=== PATIENT | female | born 1970 | race Hispanic/Latino ===

== ENCOUNTER 2020-11-20 19:56 | Emergency (ER) | payer BC ==
[2020-11-20] MEDS ORDERED: Cephalexin 250 MG CAP ONE (20:33)
[2020-11-20] MEDS ORDERED: Sulfameth/Trimethoprim DS 800-160mg TAB ONE (20:33)
[2020-11-20] MEDS ORDERED: Ibuprofen 200 MG TAB ONE (20:33)
== END 2020-11-20 20:38 | disposition home or self-care (01) ==
LOC: CSHERS 19:56
DX: S50.862A Insect bite (nonvenomous) of left forearm, initial encounter (principal); L03.114 Cellulitis of left upper limb; Z87.891 Personal history of nicotine dependence; W57.XXXA Bitten or stung by nonvenomous insect and other nonvenomous arthropods, initial encounter
CPT/HCPCS: 99283

== ENCOUNTER 2021-10-05 09:12 | Emergency (ER) | payer BC, SELFPAY ==
[2021-10-05 10:06] LABS: Bilirubin Neg (Negative); Blood, Urine 25 (Negative); Clarity Clear (Clear); Glucose, Urine (Dipstick) 50 mg/dL (Negative); Ketone, Urine Negative (Negative); Leukocyte 25 (Negative); Nitrite Negative (Negative); Protein, Urine (Dipstick) 15 mg/dl (Neg-Trace); Urobilinogen Normal mg/dL (Less than 2)
[2021-10-05 10:17] LABS: Bacteria/HPF 2+ HPF (None Seen)
[2021-10-05] MEDS ORDERED: Ketorolac Tromethamine 30 MG/ML VIAL ONE (10:40)
== END 2021-10-05 10:43 | disposition home or self-care (01) ==
LOC: CSHERS 09:12
DX: S39.012A Strain of muscle, fascia and tendon of lower back, initial encounter (principal); N30.00 Acute cystitis without hematuria; Z87.891 Personal history of nicotine dependence; X58.XXXA Exposure to other specified factors, initial encounter
CPT/HCPCS: 81003; 81015; 96372; 99283; J1885

== ENCOUNTER 2021-12-27 09:32 | Emergency (ER) | payer BC | END 2021-12-27 10:55 | disposition home or self-care (01) | LOC: CSHERS 09:32 | DX: J20.9 Acute bronchitis, unspecified (principal); Z87.891 Personal history of nicotine dependence | CPT/HCPCS: 71045; 93005 ==

== ENCOUNTER 2022-09-18 08:56 | Emergency (ER) | payer BC ==
[2022-09-18 10:46] LABS: #Monocytes 0.4 10x3/uL (0.0-1.1); #Neutrophils 6.2 10x3/uL (1.5-8.4); %Basophils 0.3 % (0.0-2.0); %Eosinophils 0.5 % (0.0-6.0); %Monocytes 4.6 % (0.0-10.0); %Neutrophils 82.3 % (40.0-75.0); Hemoglobin 15.7 g/dL (12.0-15.5); Mean Corpuscular HGB CONC 34.4 g/dL (32.0-36.0); Mean Corpuscular Hemoglobin 29.6 pg (27.0-33.0); Mean Platelet Volume 12.2 fl (7.4-10.4); Platelet Count 201 10x3/uL (150-450); RBC Distribution Width 12.8 % (11.5-14.5); White Blood Cell (WBC) Count 7.6 10x3/uL (3.5-10.5)
[2022-09-18] MEDS ORDERED: Ondansetron PF 4 MG/2 ML Vial ONE (11:00)
[2022-09-18 11:14] LABS: ALT (SGPT) 159 U/L (8-55); AST (SGOT) 99 U/L (5-34); Albumin 4.4 g/dL (3.5-5.0); Alkaline Phosphatase 106 U/L (40-110); Anion Gap 12 mmol/L (10-20); BUN (Urea Nitrogen) 14 mg/dL (7.0-18.7); Bilirubin, Total 1.9 mg/dL (0.2-1.2); Calc. Creatinine Clearance 0 mL/min (70-130); Calcium 9.2 mg/dL (7.8-10.44); Carbon Dioxide 24 mmol/L (22-29); Chloride 104 mmol/L (98-107); Estimated GFR 89; Globulin 3.7 g/dL (2.4-3.5); Glucose 113 mg/dL (70-105); Lipase 7 U/L (8-78); Potassium 3.9 mmol/L (3.5-5.1); Protein, Total 8.1 g/dL (6.0-8.3); Sodium 136 mmol/L (136-145)
[2022-09-18 11:29] LABS: Bilirubin Neg (Negative); Blood, Urine 10 (Negative); Clarity Clear (Clear); Glucose, Urine (Dipstick) Normal (Negative); Ketone, Urine Negative (Negative); Leukocyte Negative (Negative); Nitrite Negative (Negative); Protein, Urine (Dipstick) 15 mg/dl (Neg-Trace)
[2022-09-18 11:39] LABS: Bacteria/HPF 1+ HPF (None Seen); RBC/HPF 0-3 HPF (0-3); Squamous Epithelial 0-3 HPF (0-3); WBC/HPF 0-3 HPF (0-3)
== END 2022-09-18 12:05 | disposition home or self-care (01) ==
LOC: CSHERS 08:56
DX: B34.9 Viral infection, unspecified (principal); R19.7 Diarrhea, unspecified; R11.2 Nausea with vomiting, unspecified; Z87.891 Personal history of nicotine dependence
CPT/HCPCS: 71045; 80053; 81003; 81015; 83690; 84484; 85025; 87804; 93005; 96361; 96374; J2405; U0003; U0005

== ENCOUNTER 2024-09-24 14:49 | Outpatient (CLI) | payer BC | END 2024-09-24 14:50 | disposition home or self-care (01) | LOC: CSHMAMMO 14:49 | PROVIDERS: ATTEND Family Medicine | DX: Z12.31 Encounter for screening mammogram for malignant neoplasm of breast (principal); Z80.3 Family history of malignant neoplasm of breast | CPT/HCPCS: 77063; 77067 ==